=== PATIENT | female | born 1960 | race Hispanic/Latino ===

== ENCOUNTER 2018-12-15 10:52 | Emergency (ER) | payer BC, OTHER ==
[2018-12-15 11:12] LABS: APPEARANCE,URINE Clear (CLEAR); BILIRUBIN,URINE Negative (NEGATIVE); COLOR,URINE Dark Yellow (YELLOW); GLUCOSE, URINE (UA) Negative (NEGATIVE); KETONES,URINE >=80 mg/dL (NEGATIVE); LEUKOCYTE ESTERASE ,URINE Small (NEGATIVE); NITRATE,URINE Negative (NEGATIVE); OCCULT BLOOD,URINE Large (NEGATIVE); PH,URINE 7.5 (5.0-8.0); PROTEIN,URINE Trace mg/dL (NEGATIVE)
[2018-12-15] MEDS ORDERED: TAMSULOSIN HCL 0.4 MG CAP.ER.24H ONE (11:26)
[2018-12-15] MEDS ORDERED: ONDANSETRON HCL 4 MG/2 ML VIAL ONE (11:26)
[2018-12-15] MEDS ORDERED: KETOROLAC TROMETHAMINE 15MG/ML ONE (11:27)
[2018-12-15] MEDS ORDERED: SODIUM CHLORIDE 0.9% 1000ML 1,000 ML IV ONE (11:27)
[2018-12-15 11:37] LABS: BACTERIA,URINE None Seen /HPF (None Seen); MUCUS,URINE Moderate LPF (None Seen); RBC,URINE 26-50 /HPF (0-1); SQUAMOUS EPITHELIAL CELL,UR 0-2 /HPF (0-2)
[2018-12-15 12:41] LABS: CREATININE 1.1 mg/dL (0.5-1.5)
[2018-12-15 12:45] LABS: ALBUMIN 4.1 g/dL (3.5-5.0); BILIRUBIN,TOTAL 0.5 mg/dL (0.2-1.0); TOTAL PROTEIN, SERUM 7.3 g/dL (6.0-8.3)
[2018-12-15 12:50] LABS: POTASSIUM 4.8 mmol/L (3.5-5.1)
[2018-12-15 12:58] LABS: BASOPHILS % (AUTO) 0.7 % (0.0-5.0); EOSINOPHILS % (AUTO) 0.5 % (0.0-8.0); HEMATOCRIT 43.2 % (36-48); LYMPHOCYTES % (AUTO) 10.7 % (21.0-51.0); MEAN CORPUSCULAR HEMOGLOBIN 31.4 pg (27.0-33.0); MEAN CORPUSCULAR HGB CONC 34.3 g/dL (32.0-36.0); MEAN CORPUSCULAR VOLUME 91.5 fL (79-99); MONOCYTES % (AUTO) 4.4 % (3.0-13.0); NEUTROPHILS % (AUTO) 83.7 % (40.0-77.0); NUCLEATED RED BLOOD CELLS 0.1 % (0.0-0.19); PLATELET COUNT (AUTO) 238 K/uL (130-400); RED BLOOD CELL COUNT(AUTO) 4.72 MIL/uL (4.00-5.50); RED CELL DISTRIBUTION WIDTH 12.8 % (11.0-15.5)
== END 2018-12-15 13:37 | disposition home or self-care (01) ==
LOC: EDH 10:52
DX: N13.39 Other hydronephrosis (principal); R11.2 Nausea with vomiting, unspecified; Z90.49 Acquired absence of other specified parts of digestive tract; Z88.0 Allergy status to penicillin; Z88.2 Allergy status to sulfonamides
CPT/HCPCS: 36415; 74176; 80053; 81001; 85025; 96361; 96374; 96375; 99285; J1885; J2405; J7030